=== PATIENT | female | born 1990 | race American Indian/Alaskan Native ===

== ENCOUNTER 2022-06-10 21:15 | Emergency (ER) | payer SELFPAY ==
--- NOTE | 2022-06-11 06:20 | Emergency Department Report ---
ED General Adult HPI - General Chief complaint: Anxiety Stated complaint: PSYCH/MED REFILL Time Seen by Provider: 06/11/22 06:05 Source: patient Mode of arrival: Ambulatory Limitations: No Limitations - History of Present Illness Initial comments: Patient 31-year-old female with diagnosis of anxiety patient states she takes Ativan 1 mg p.o. 3 times daily as needed for same states she is out of medication requesting refill. Patient is from [place]. Will verify [facility] aware. Patient states anxiety symptoms are rated at 3/10. Patient denies S I, HI, no chest pain no lightheadedness no dizziness no nausea no vomiting no tremor patient is tolerating p.o. intake. Patient is accompanied by family member. Patient states they were on trip today and stopped by ED for medication. Patient does have a psychiatrist in [place] will see him tomorrow. - Related Data Allergies Allergy/AdvReac Type Severity Reaction Status Date / Time No Known Allergies Allergy Unverified 06/11/22 06:14 ED Review of Systems ROS: Stated complaint: PSYCH/MED REFILL Other details as noted in HPI Constitutional: denies: chills, fever Eyes: denies: eye pain, eye discharge, vision change ENT: denies: ear pain, throat pain Respiratory: denies: cough, shortness of breath, wheezing Cardiovascular: denies: chest pain, palpitations Endocrine: no symptoms reported Gastrointestinal: denies: abdominal pain, nausea, diarrhea Genitourinary: denies: urgency, dysuria, discharge Musculoskeletal: denies: back pain, joint swelling, arthralgia Skin: denies: rash, lesions Neurological: denies: headache, weakness, numbness, paresthesias, confusion, vertigo Psychiatric: anxiety. denies: depression, auditory hallucinations, visual hallucinations, homicidal thoughts, suicidal thoughts Hematological/Lymphatic: denies: easy bleeding, easy bruising ED Past Medical Hx - Past Medical History Previous Medical History?: Yes Hx Psychiatric Treatment: Yes (ANXIETY) Additional medical history: SYNCOPE - Surgical History Past Surgical History?: Yes Additional Surgical History: TUBAL - Social History Smoking Status: Unknown if ever smoked ED Physical Exam - General Limitations: No Limitations General appearance: alert, in no apparent distress - Head Head exam: Present: atraumatic, normocephalic - Eye Eye exam: Present: normal appearance, PERRL, EOMI Pupils: Present: normal accommodation - ENT ENT exam: Present: mucous membranes moist - Neck Neck exam: Present: normal inspection, full ROM. Absent: tenderness, lymphadenopathy - Respiratory Respiratory exam: Present: normal lung sounds bilaterally. Absent: respiratory distress - Cardiovascular Cardiovascular Exam: Present: regular rate, normal rhythm, normal heart sounds. Absent: systolic murmur, diastolic murmur, rubs, gallop - GI/Abdominal GI/Abdominal exam: Present: soft, normal bowel sounds. Absent: distended, tenderness, guarding, rebound, rigid, bruit, hernia - Rectal Rectal exam: Present: deferred - Extremities Exam Extremities exam: Present: normal inspection, full ROM, normal capillary refill - Back Exam Back exam: Present: normal inspection, full ROM. Absent: CVA tenderness (R), CVA tenderness (L) - Neurological Exam Neurological exam: Present: alert, oriented X3, CN II-XII intact, normal gait - Expanded Neurological Exam Expanded Patient oriented to: Present: person, place, time Speech: Present: fluid speech Cranial nerves: EOM's Intact: Normal Motor strength exam: RUE: 5, LUE: 5, RLE: 5, LLE: 5 Best Eye Response ([place]): (4) open spontaneously Best Motor Response ([place]): (6) obeys commands Best Verbal Response ([place]): (5) oriented [place] Total: 15 - Psychiatric Psychiatric exam: Present: anxious. Absent: depressed, agitated, manic, homicidal ideation, suicidal ideation - Skin Skin exam: Present: warm, dry, intact, normal color. Absent: rash ED Course Vital Signs 06/10/22 21:51 Temperature 98.4 F Pulse Rate 105 H Respiratory 18 Rate Blood Pressure 122/79 O2 Sat by Pulse 99 Oximetry ED Medical Decision Making - Medical Decision Making 06/07/2022 06/07/2022 2 Lorazepam 1 Mg Tablet 9.00 3 Th Mor [id number] [facility] ([id number]) 0 3.00 L[place] 06/02/2022 06/02/2022 2 Lorazepam 0.5 Mg Tablet 15.00 5 Ol Bab [id number] [facility] ([id number]) 0 1.50 [place] 05/15/2022 05/15/2022 1 Lorazepam 0.5 Mg Tablet 10.00 5 Ni Gra [id number] [facility] ([id number]) 0 1.00 [place] 05/12/2022 05/12/2022 3 Lorazepam 0.5 Mg Tablet 10.00 5 As [facility] [phone] [facility] ([id number]) 0 1.00 LME Private Pay [facility] [employer] aware report as above patient states she has psychiatrist in [place] which is her home a record and she is headed there today. Patient given Ativan 1 mg 1 tab in ED patient discharged to home will call psychiatrist today and follow-up for refill of same. I have shared p.m. aware information with patient and advised her to get all medications from 1 prescriber as she had declared as her psychiatrist. Patient verbalized agreement and understanding of discharge plan. Patient DC'd to home in stable condition via POV and family member at this time. Patient is alert oriented x3 patient denies SI or HI. There is no dizziness no headache no chest pain no shortness of breath no nausea or vomiting. Patient demonstrates decision-making in mentation at this time. Patient is amatory with steady gait and tolerating p.o. intake. No symptoms of withdrawal. Critical care attestation.: If time is entered above; I have spent that time in minutes in the direct care of this critically ill patient, excluding procedure time. ED Disposition Clinical Impression: Stress, Medication refill Disposition: 01 HOME / SELF CARE / HOMELESS Is pt being admited?: No Does the pt Need Aspirin: No Condition: Stable Instructions: Managing Anxiety, Adult Additional Instructions: Follow-up with your psychiatrist today for medication management. Follow-up with emergency department should symptoms worsen. Forms: Work/School Release Form(ED) Time of Disposition: 06:25
[2022-06-11 06:41] VITALS: BP 126/80
[2022-06-11] MEDS ORDERED: LORazepam 1 MG TAB PO ONE (06:46)
== END 2022-06-11 06:41 | disposition home or self-care (01) ==
LOC: ED 21:15
DX: F43.9 Reaction to severe stress, unspecified (principal); Z76.0 Encounter for issue of repeat prescription; F41.9 Anxiety disorder, unspecified
CPT/HCPCS: 99282